=== PATIENT | female | born 1990 | race Caucasian/White ===

== ENCOUNTER → 2017-01-06 | Outpatient (CLI) | payer OTHER ==
[2017-01-06 12:25] LABS: ABSOLUTE BASOPHILS # (AUTO) 0.1 10^3/uL (0.0-0.2); ABSOLUTE EOSINOPHILS # (AUTO) 0.5 10^3/uL (0.0-0.6); ABSOLUTE LYMPHOCYTES (AUTO) 3.2 10^3/uL (0.5-4.7); ABSOLUTE MONOCYTES (AUTO) 0.6 10^3/uL (0.1-1.4); ABSOLUTE NEUT (AUTO) 5.2 10^3/uL (1.7-8.2); BASOPHILS % (AUTO) 0.7 % (0-2); EOSINOPHILS % (AUTO) 4.8 % (0-6); HEMATOCRIT 39.8 % (36.0-47.0); HEMOGLOBIN 13.2 g/dL (12.0-15.5); HGB HCT DIFFERENCE -0.2; MEAN CORPUSCULAR HEMOGLOBIN 29.6 pg (27.0-33.4); MEAN CORPUSCULAR HGB CONC 33.3 g/dL (32.0-36.0); MEAN CORPUSCULAR VOLUME 89 fl (80-97); MONOCYTES % (AUTO) 6.1 % (3-13); RED BLOOD COUNT 4.48 10^6/uL (3.72-5.28); RED CELL DISTRIBUTION WIDTH 14.4 % (11.5-14.0); SEGMENTED NEUTROPHILS % (AUTO) 54.4 % (42-78); WHITE BLOOD COUNT 9.5 10^3/uL (4.0-10.5)
[2017-01-06 12:51] LABS: ALANINE AMINOTRANSFERASE 51 U/L (9-52); ALBUMIN 4.1 g/dL (3.5-5.0); ALKALINE PHOSPHATASE 102 U/L (38-126); ANION GAP 12 (5-19); ASPARTATE AMINO TRANSFERASE 66 U/L (14-36); BILIRUBIN,DIRECT 0.5 mg/dL (0.0-0.4); BILIRUBIN,TOTAL 0.6 mg/dL (0.2-1.3); BLOOD UREA NITROGEN 10 mg/dL (7-20); CALCIUM 9.6 mg/dL (8.4-10.2); CARBON DIOXIDE 23 mmol/L (22-30); CHLORIDE 105 mmol/L (98-107); CREATININE RESULT 0.72 mg/dL (0.52-1.25); GLUCOSE 160 mg/dL (75-110); SODIUM 139.8 mmol/L (137-145); TOTAL PROTEIN 7.7 g/dL (6.3-8.2)
[2017-01-06 12:52] LABS: POTASSIUM 4.2 mmol/L (3.6-5.0)
== END ==
LOC: OD 11:29
PROVIDERS: ATTEND Internal Medicine
DX: I10 Essential (primary) hypertension (principal); R73.09 Other abnormal glucose; E66.01 Morbid (severe) obesity due to excess calories
CPT/HCPCS: 36415; 80053; 82043; 83036; 84443; 85025

== ENCOUNTER 2017-01-31 21:48 | Emergency (ER) | payer OTHER | END 2017-01-31 23:38 | disposition left against medical advice (07) | LOC: ER 21:48 | DX: Z53.21 Procedure and treatment not carried out due to patient leaving prior to being seen by health care provider (principal) ==

== ENCOUNTER 2017-05-21 19:44 | Emergency (ER) | payer BC, OTHER ==
[2017-05-21] MEDS ORDERED: LORATADINE/PSEUDOEPHEDRINE SUL 10-240 MG TAB.SR.24H PO ONE (21:39)
[2017-05-21] MEDS ORDERED: IPRATROPIUM/ALBUTEROL 0.5-2.5 MG/3 ML AMPUL NEB ONE (21:39)
--- NOTE | 2017-05-21 22:09 | ER Document Report ---
ED General - General Chief Complaint: Cold Symptoms Stated Complaint: FLU LIKE SYMPTOMS Time Seen by Provider: 05/21/17 21:39 Notes: Patient is a 27-year-old female presents emergency department complaining of sinus congestion, runny nose, sore throat and dry cough for approximately 3 days. Patient states that she does have a history of asthma and ran out of her inhaler. Past medical history significant for diabetes, hypertension, anxiety, bipolar. Patient is a current smoker Past surgical history significant for tonsils and adenoids, cholecystectomy TRAVEL OUTSIDE OF THE [place] IN LAST 30 DAYS: No - Related Data Allergies/Adverse Reactions: No Known Allergies Allergy (Verified 05/21/17 19:47) Past Medical History - Social History Smoking Status: Unknown if Ever Smoked Chew tobacco use (# tins/day): No Frequency of alcohol use: None Drug Abuse: None Family History: Reviewed & Not Pertinent Patient has suicidal ideation: No Patient has homicidal ideation: No - Past Medical History Cardiac Medical History: Reports: Hx Hypertension Endocrine Medical History: Reports: Hx Diabetes Mellitus Type 2 Renal/ Medical History: Denies: Hx Peritoneal Dialysis Past Surgical History: Reports: Hx Cholecystectomy - Immunizations Hx Diphtheria, Pertussis, Tetanus Vaccination: No Review of Systems - Review of Systems Constitutional: No symptoms reported EENT: See HPI Cardiovascular: No symptoms reported Respiratory: See HPI Gastrointestinal: No symptoms reported -: Yes All other systems reviewed and negative Physical Exam - Vital signs Vitals: Temp Pulse Resp BP Pulse Ox 99.5 F 113 H 18 142/99 H 94 05/21/17 19:47 05/21/17 19:47 05/21/17 19:47 05/21/17 19:47 05/21/17 19:47 - Notes Notes: PHYSICAL EXAM GENERAL: Alert, interacts well. HEAD: Normocephalic, atraumatic. EYES: Pupils equal, round, and reactive to light. Extraocular movements intact. ENT: Oral mucosa moist, tongue midline. Uvula midline. Airway patent. No evidence of tonsillar enlargement, peritonsillar abscess, retropharyngeal abscess. NECK: Full range of motion. Supple. Trachea midline. LUNGS: Clear to auscultation bilaterally, no wheezes, rales, or rhonchi. No respiratory distress. HEART: Regular rate and rhythm. No murmurs, gallops, or rubs. NEUROLOGICAL: Alert and oriented x4. Normal speech. PSYCH: Normal affect, normal mood. SKIN: Warm, dry, normal turgor. No rashes or lesions noted. Course - Re-evaluation Re-evalutation: 05/21/17 22:43 Patient is a 27-year-old female is hemodynamically stable, no acute distress afebrile. Nebulizer treatment. No respiratory distress noted. Discussed with patient [id number] management of hayfever and will discharge home on steroids for asthma exacerbation. Patient agrees with plan. Discussed signs and symptoms aware of indicating return to the emergency department. She agrees with plan patient feels improved after - Vital Signs Vital signs: Temp Pulse Resp BP Pulse Ox 99.5 F 113 H 18 142/99 H 94 05/21/17 19:47 05/21/17 19:47 05/21/17 19:47 05/21/17 19:47 05/21/17 19:47 Discharge - Discharge Clinical Impression: Asthma exacerbation Condition: Good Disposition: HOME, SELF-CARE Additional Instructions: Please purchase an [id number] allergy medication with decongestant such as Larissa-D or Claritin D ASTHMA: You have been diagnosed as having asthma. This is a condition where there is episodic tightness in the bronchial tubes. Allergies, infections, and polluted or cold air may be contributing factors. Emergency treatment of a severe asthma attack may include adrenaline shots , or bronchodilator aerosol. You may feel lightheaded, have a decreased exercise tolerance and a rapid pulse for an hour or two. Rest and get plenty of fluids. Home treatment of asthma requires bronchodilator drugs. These can be administered by injection, inhalation, or by mouth. Antibiotics and corticosteroids may be required for some patients. You should avoid chemical fumes, dusts, pollens, and exercising in very cold or dry air. If you smoke, stop!! If you develop a fever, increased wheezing, chest pain, or severe shortness of breath, you should contact the doctor immediately. STEROID MEDICATION: You have been given an injection of or oral medicine of the cortisone/ steroid class. This medication is used to control inflammation or allergy. Ap t is usually only given for a short period of time, until the acute process subsides. There are usually no side effects from short-term use of cortisone-like medications. Some persons feel an increased sense of well-being and are not sleepy at bedtime. Long-term use of cortisone medications is best avoided, unless required for a severe condition. If your condition does not remit, or relapses after the course of corticosteroid medication, you should consult your physician. INHALED BRONCHODILATORS: You have received treatment(s) of and/or prescription for an inhaled bronchodilator -- a medication which stimulates the airways in the lung to dilate. This improves the flow of air in asthma, bronchitis, and emphysema. These medicines have some similarity to adrenaline, and can cause similar side effects: shakiness, racing heart, and a sense of nervousness. These side effects decrease with time. Contact your doctor if these side effects are severe. Do not over-use the medicine. Too-frequent use of the inhaler may make it ineffective. Call your doctor if the inhaler is not controlling your symptoms at the prescribed doses. SMOKING: If you smoke, you should stop smoking. The tar and chemicals in cigarette smoke are harmful. Smoking has been shown to cause: emphysema chronic bronchitis lung cancer mouth and throat cancer stomach and pancreas cancer premature aging defects In addition, smoking increases ear and lung infections in children of smokers. USE OF ACETAMINOPHEN: Acetaminophen may be taken for pain relief or fever control. It's much safer than aspirin, offering a wider range of "safe" dosages. It is safe during . Some brand names are Tylenol, Panadol, Datril, Anacin 3, Tempra, and Liquiprin. Acetaminophen can be repeated every four hours. The following are maximum recommended dosages: USE OF ACETAMINOPHEN (Tylenol): Acetaminophen may be taken for pain relief or fever control. It's much safer than aspirin, offering a wider range of "safe" dosages. It is safe during . Some brand names are Tylenol, Panadol, Datril, Anacin 3, Tempra, and Liquiprin. Acetaminophen can be repeated every four hours. The following are maximum recommended dosages: WEIGHT Dose Drops Elixir Chewable( 80mg) (LBS.) drprs=droppers tsp=teaspoon 6 40 mg 0.4 ml (1/2) 6-11 80 mg 0.8 ml (full) tsp 1 tab 12-16 120 mg 1 1/2 drprs 3/4 tsp 1 1/2 tabs 17-23 160 mg 2 drprs 1 tsp 2 tabs 24-30 240 mg 3 drprs 1 1/2 tsp 3 tabs 30-35 320 mg 2 tsp 4 tabs 36-41 360 mg 2 1/4 tsp 4 1/2 tabs 42-47 400 mg 2 1/2 tsp 5 tabs 48-53 480 mg 3 tsp 6 tabs 54-59 520 mg 3 1/4 tsp 6 1/2 tabs 60-64 560 mg 3 1/2 tsp 7 tabs 65-70 600 mg 3 3/4 tsp 7 1/2 tabs 71-76 640 mg 4 tsp 8 tabs 77-82 720 mg 4 1/2 tsp 9 tabs 83-88 800 mg 5 tsp 10 tabs >89 pounds or adults 650 mg to 900 mg Acetaminophen can be repeated every four hours. Maximum dose not to exceed 4000 mg a day. These maximum recommended dosages are slightly higher than the dosages written on the product container, but these dosages are very safe and below the toxic dosage for acetaminophen. FOLLOW-UP CARE: If you have been referred to a physician for follow-up care, call the physician s office for an appointment as you were instructed or within the next two days. If you experience worsening or a significant change in your symptoms, notify the physician immediately or return to the Emergency Department at any time for re-evaluation. Prescriptions: Methylprednisolone [Medrol Dosepack (4 mg/Tab) 21 Tab/Dosepak] 4 mg PO ASDIR PRN #21 tab.ds.pk PRN Reason: Forms: Smoking Cessation Education, Return to Work
[2017-05-21] MEDS ORDERED: ALBUTEROL SULFATE HFA (90 MCG/PUFF) 8 GM MDI (1 MDI/ER DISP) IH PRN (22:26)
[2017-05-21 22:49] VITALS: BP 147/81
== END 2017-05-21 22:54 | disposition home or self-care (01) ==
LOC: ER 19:44
DX: J45.901 Unspecified asthma with (acute) exacerbation (principal); R09.81 Nasal congestion; J02.9 Acute pharyngitis, unspecified; R09.89 Other specified symptoms and signs involving the circulatory and respiratory systems; R05 Cough; E11.9 Type 2 diabetes mellitus without complications; I10 Essential (primary) hypertension; F17.200 Nicotine dependence, unspecified, uncomplicated
CPT/HCPCS: 94640; 99283; J3490 ×2; J7620

== ENCOUNTER 2017-06-06 10:59 | Emergency (ER) | payer OTHER ==
[2017-06-06] MEDS ORDERED: NORMAL SALINE 1000 ML 1,000 ML IV ONE ×2 (11:11→12:43)
--- NOTE | 2017-06-06 11:14 | ER Document Report ---
ED Medical Screen (RME) - General Chief Complaint: Nausea/Vomiting/Diarrhea Stated Complaint: VOMITING, DIARRHEA Time Seen by Provider: 06/06/17 11:11 Mode of Arrival: Ambulatory Information source: Patient Notes: 27 yr old female presents with complaints of nausea vomiting diarrhea. I have greeted and performed a rapid initial assessment of this patient. A comprehensive ED assessment and evaluation of the patient, analysis of test results and completion of the medical decision making process will be conducted by additional ED providers. PHYSICAL EXAMINATION: GENERAL: Well-appearing, well-nourished and in no acute distress. HEAD: Atraumatic, normocephalic. EYES: Pupils equal round extraocular movements intact, conjunctiva are normal. ENT: Nares patent NECK: Normal range of motion LUNGS: No respiratory distress Musculoskeletal: Normal range of motion NEUROLOGICAL: Normal speech, normal gait. PSYCH: Normal mood, normal affect. SKIN: Warm, Dry, normal turgor, no rashes or lesions noted. TRAVEL OUTSIDE OF THE [place] IN LAST 30 DAYS: No - Related Data Allergies/Adverse Reactions: No Known Allergies Allergy (Verified 06/06/17 11:03) Past Medical History - Past Medical History Cardiac Medical History: Reports: Hx Hypertension Endocrine Medical History: Reports: Hx Diabetes Mellitus Type 2 Renal/ Medical History: Denies: Hx Peritoneal Dialysis Past Surgical History: Reports: Hx Cholecystectomy - Immunizations Hx Diphtheria, Pertussis, Tetanus Vaccination: No Physical Exam - Vital signs Vitals: Temp Pulse Resp BP Pulse Ox 98.0 F 117 H 24 H 144/83 H 97 06/06/17 11:04 06/06/17 11:04 06/06/17 11:04 06/06/17 11:04 06/06/17 11:04 Course - Vital Signs Vital signs: Temp Pulse Resp BP Pulse Ox 98.0 F 117 H 24 H 144/83 H 97 06/06/17 11:04 06/06/17 11:04 06/06/17 11:04 06/06/17 11:04 06/06/17 11:04
--- NOTE | 2017-06-06 11:42 | ER Document Report ---
ED General - General Chief Complaint: Nausea/Vomiting/Diarrhea Stated Complaint: VOMITING, DIARRHEA Time Seen by Provider: 06/06/17 11:11 Mode of Arrival: Ambulatory Notes: 27-year-old female patient presents emergency department with 1 day history of nausea, vomiting, diarrhea and generally not feeling well. States that she cannot keep anything down. Some crampy abdominal discomfort. Patient states that she has type 2 diabetes, hypertension is a smoker with asthma. Everybody in the house is sick as well. No blood in her diarrhea. No blood in the vomit. No recent surgeries. No other issues at this time. Denies any fevers. TRAVEL OUTSIDE OF THE [place] IN LAST 30 DAYS: No - Related Data Allergies/Adverse Reactions: No Known Allergies Allergy (Verified 06/06/17 11:03) Past Medical History - General Information source: Patient - Social History Smoking Status: Current Every Day Smoker Chew tobacco use (# tins/day): No Frequency of alcohol use: None Drug Abuse: None Family History: Reviewed & Not Pertinent - Past Medical History Cardiac Medical History: Reports: Hx Hypertension Endocrine Medical History: Reports: Hx Diabetes Mellitus Type 2 Renal/ Medical History: Denies: Hx Peritoneal Dialysis Past Surgical History: Reports: Hx Cholecystectomy - Immunizations Hx Diphtheria, Pertussis, Tetanus Vaccination: No Review of Systems - Review of Systems Constitutional: No symptoms reported EENT: No symptoms reported Cardiovascular: No symptoms reported, Heart racing Respiratory: No symptoms reported Gastrointestinal: No symptoms reported, Abdominal pain, Diarrhea, Nausea, Vomiting Genitourinary: No symptoms reported Female Genitourinary: No symptoms reported Musculoskeletal: No symptoms reported Skin: No symptoms reported Hematologic/Lymphatic: No symptoms reported Neurological/Psychological: No symptoms reported Physical Exam - Vital signs Vitals: Temp Pulse Resp BP Pulse Ox 98.0 F 117 H 24 H 144/83 H 97 06/06/17 11:04 06/06/17 11:04 06/06/17 11:04 06/06/17 11:04 06/06/17 11:04 Interpretation: Normal, Tachypneic - General General appearance: Appears well, Alert In distress: None - HEENT Head: Normocephalic, Atraumatic Eyes: Normal Pupils: PERRL Mucous membranes: Dry - Respiratory Respiratory status: No respiratory distress Chest status: Nontender Breath sounds: Normal Chest palpation: Normal - Cardiovascular Rhythm: Regular, Tachycardia Heart sounds: Normal auscultation Murmur: No - Abdominal Inspection: Normal Distension: No distension Bowel sounds: Hyperactive Tenderness: Nontender Organomegaly: No organomegaly - Back Back: Normal, Nontender - Extremities General upper extremity: Normal inspection, Nontender, Normal color, Normal ROM , Normal temperature General lower extremity: Normal inspection, Nontender, Normal color, Normal ROM , Normal temperature, Normal weight bearing. No: Allan's sign - Neurological Neuro grossly intact: Yes Cognition: Normal Orientation: AAOx4 [place] Coma Scale Eye Opening: Spontaneous Nils Coma Scale Verbal: Oriented Nils Coma Scale Motor: Obeys Commands Nils Coma Scale Total: 15 Speech: Normal Motor strength normal: LUE, RUE, LLE, RLE Sensory: Normal - Psychological Associated symptoms: Normal affect, Normal mood - Skin Skin Temperature: Warm Skin Moisture: Dry Skin Color: Normal Course - Re-evaluation Re-evalutation: 06/06/17 11:52 This is a well-appearing female in no acute distress at this time. IV has been established. IV fluids will be given. Zofran. H2 IV for easing of the stomach. Likely check some basic labs and anticipate treatment and DC. 06/06/17 13:51 Patient feeling much better at this time. Tolerating p.o. Slight elevation in her AST and ALT. Added a acute hepatitis panel as well as lipase. Instructed patient that she will need close follow-up regarding her elevated liver function studies as this may indicate a retained stone if her bilirubin levels begin to elevate. Patient verbalized understanding these instructions. Will discharge shortly. - Vital Signs Vital signs: Temp Pulse Resp BP Pulse Ox 98.0 F 117 H 24 H 144/83 H 97 06/06/17 11:04 06/06/17 11:04 06/06/17 11:04 06/06/17 11:04 06/06/17 11:04 - Laboratory Result Diagrams: 06/06/17 11:34 06/06/17 11:34 Laboratory results interpreted by me: 06/06/17 06/06/17 06/06/17 11:12 11:34 11:34 RDW 14.6 H VBG pH Carbon Dioxide 21 L Glucose 143 H POC Glucose 150 H AST 200 H ALT 88 H Urine Protein Urine Blood Urine Urobilinogen 10/07/17 10/07/17 11:34 12:40 RDW VBG pH 7.43 H Carbon Dioxide Glucose POC Glucose AST ALT Urine Protein 30 H Urine Blood LARGE H Urine Urobilinogen 4.0 H Discharge - Discharge Clinical Impression: Gastroenteritis Condition: Good Disposition: HOME, SELF-CARE Instructions: Antinausea Medication ([facility]), Gastroenteritis (adult) ([facility]) Prescriptions: Ondansetron [Zofran Odt 4 mg Tablet] 1 - 2 tab PO Q4H PRN #15 tab.rapdis PRN Reason: For Nausea/Vomiting Ranitidine HCl [Zantac 150 mg Tablet] 150 mg PO BID #60 tablet Forms: Return to Work
[2017-06-06 11:46] LABS: ABSOLUTE BASOPHILS # (AUTO) 0.1 10^3/uL (0.0-0.2); ABSOLUTE EOSINOPHILS # (AUTO) 0.3 10^3/uL (0.0-0.6); ABSOLUTE LYMPHOCYTES (AUTO) 1.5 10^3/uL (0.5-4.7); ABSOLUTE MONOCYTES (AUTO) 0.4 10^3/uL (0.1-1.4); ABSOLUTE NEUT (AUTO) 6.3 10^3/uL (1.7-8.2); BASOPHILS % (AUTO) 0.6 % (0-2); EOSINOPHILS % (AUTO) 3.2 % (0-6); HEMATOCRIT 38.4 % (36.0-47.0); HGB HCT DIFFERENCE 0.6; LYMPHOCYTES % (AUTO) 17.4 % (13-45); MEAN CORPUSCULAR HEMOGLOBIN 29.8 pg (27.0-33.4); MEAN CORPUSCULAR HGB CONC 33.9 g/dL (32.0-36.0); MEAN CORPUSCULAR VOLUME 88 fl (80-97); MONOCYTES % (AUTO) 4.3 % (3-13); RED BLOOD COUNT 4.36 10^6/uL (3.72-5.28); RED CELL DISTRIBUTION WIDTH 14.6 % (11.5-14.0); SEGMENTED NEUTROPHILS % (AUTO) 74.5 % (42-78); WHITE BLOOD COUNT 8.5 10^3/uL (4.0-10.5)
[2017-06-06 11:47] LABS: VENOUS BLOOD BASE EXCESS -0.3 mmol/L; VENOUS BLOOD HCO3 23.7 mmol/L (20-32); VENOUS BLOOD PCO2 36.9 mmHg (35-63); VENOUS BLOOD PH 7.43 (7.30-7.42)
[2017-06-06] MEDS ORDERED: FAMOTIDINE INJ/PF 20 MG/2 ML SDV IV ONE (11:53)
[2017-06-06] MEDS ORDERED: ONDANSETRON HCL INJ/PF 4 MG/2 ML SDV IV ONE (11:53)
[2017-06-06 12:06] LABS: ALANINE AMINOTRANSFERASE 88 U/L (9-52); ALKALINE PHOSPHATASE 87 U/L (38-126); ANION GAP 16 (5-19); ASPARTATE AMINO TRANSFERASE 200 U/L (14-36); BILIRUBIN,DIRECT 0.4 mg/dL (0.0-0.4); BILIRUBIN,TOTAL 0.6 mg/dL (0.2-1.3); BLOOD UREA NITROGEN 10 mg/dL (7-20); CALCIUM 8.9 mg/dL (8.4-10.2); CARBON DIOXIDE 21 mmol/L (22-30); CHLORIDE 103 mmol/L (98-107); CREATININE RESULT 0.65 mg/dL (0.52-1.25); GLUCOSE 143 mg/dL (75-110); POTASSIUM 4.1 mmol/L (3.6-5.0); SODIUM 139.5 mmol/L (137-145); TOTAL PROTEIN 7.1 g/dL (6.3-8.2)
[2017-06-06 13:22] LABS: APPEARANCE,URINE SLIGHTLY-CLOUDY; BILIRUBIN,URINE NEGATIVE (NEGATIVE); GLUCOSE, URINE NEGATIVE (NEGATIVE); KETONES,URINE NEGATIVE (NEGATIVE); LEUKOCYTE ESTERASE,URINE NEGATIVE (NEGATIVE); NITRITE,URINE NEGATIVE (NEGATIVE); PROTEIN,URINE 30 mg/dL (NEGATIVE); URINE SPECIFIC GRAVITY 1.028
[2017-06-06 14:58] VITALS: BP 124/72
== END 2017-06-06 14:55 | disposition home or self-care (01) ==
LOC: ER 10:59
DX: K52.9 Noninfective gastroenteritis and colitis, unspecified (principal); E11.9 Type 2 diabetes mellitus without complications; I10 Essential (primary) hypertension; F17.200 Nicotine dependence, unspecified, uncomplicated; J45.909 Unspecified asthma, uncomplicated; R00.0 Tachycardia, unspecified
CPT/HCPCS: 99284; 96361; 96374; 96375; 36415; 82962; 83690; 85025; 81025; 80053; 81001; 82803; 80074; J2405; J7030; S0028

== ENCOUNTER 2017-07-23 17:24 | Emergency (ER) | payer OTHER ==
[2017-07-23] MEDS ORDERED: LIDOCAINE 1% INJ-PF (10 MG/ML) 30 ML SDV INJ ONE (17:32)
[2017-07-23] MEDS ORDERED: ACETAMINOPHEN 325 MG TABLET PO ONE (17:32)
--- NOTE | 2017-07-23 17:32 | ER Document Report ---
HPI - HPI Patient complains to provider of: Laceration Pain Level: 4 Context: Patient is a 27-year-old female presents emergency department complaining of a laceration to the volar surface of the left middle finger along the radial aspect in the proximal phalanx joint. Patient states that she was cutting of high holding it with her left hand and the knife went through cutting her finger. States her tetanus is not up-to-date. Able to move her finger without any difficulty sensation intact. Past medical history of asthma. - REPRODUCTIVE Reproductive: DENIES: : Past Medical History - Social History Smoking Status: Never Smoker Family History: Reviewed & Not Pertinent - Past Medical History Cardiac Medical History: Reports: Hx Hypertension Endocrine Medical History: Reports: Hx Diabetes Mellitus Type 2 Renal/ Medical History: Denies: Hx Peritoneal Dialysis Past Surgical History: Reports: Hx Cholecystectomy - Immunizations Hx Diphtheria, Pertussis, Tetanus Vaccination: No Vertical Provider Document - CONSTITUTIONAL Notes: PHYSICAL EXAM GENERAL: Alert, interacts well. EXTREMITIES: Left hand with evidence of laceration on the radial volar surface of the left middle finger without tendon injury. [employer] strength equal bilaterally in resistance on active range of motion is equal in all digits. Sensation intact distal injury with capillary refill less than 2 seconds in all upper extremity digits NEUROLOGICAL: Alert and oriented x4. Normal speech. PSYCH: Normal affect, normal mood. SKIN: Warm, dry, normal turgor. A 2 cm horizontal laceration on the middle finger without active bleeding. - INFECTION CONTROL TRAVEL OUTSIDE OF THE [place] IN LAST 30 DAYS: No - RESPIRATORY O2 Sat by Pulse Oximetry: 97 Course - Re-evaluation Re-evalutation: 07/23/17 18:36 Patient is a 27-year-old female who presents with a laceration to her left middle finger. This was irrigated with Betadine and saline and closed primarily at the bedside. Patient tolerated the procedure well. Digit is neurovascularly intact without any concerning injury range of motion and strength intact. Patient placed in a splint and to follow-up with primary care for suture removal. Patient given strict return precautions and stable for discharge. - Vital Signs Vital signs: Temp Pulse Resp BP Pulse Ox 99.2 F 98 20 142/84 H 97 07/23/17 17:27 07/23/17 17:27 07/23/17 17:27 07/23/17 17:27 07/23/17 17:27 Procedures - Laceration/Wound Repair Left Lateral 3rd digit Wound length (cm): 2 Wound's Depth, Shape: Linear, Other - no tendon involvement Laceration pre-procedure: Sterile PPE donned, Betadine prep applied, Sterile drapes applied Anesthetic type: 1% Lidocaine Volume Anesthetic (mLs): 2 Wound explored: Clean, No foreign body removed Irrigated w/ Saline (mLs): 250 Wound Repaired With: Sutures Suture Size/Type: 6:0, Nylon Number of Sutures: 3 Layer Closure?: No Post-procedure wound care: Sterile dressing applied, Splint applied Post-procedure NV exam normal: Yes Complications: No Discharge - Discharge Clinical Impression: Finger laceration Qualifiers: Encounter type: initial encounter Finger: middle finger Damage to nail status: without damage Foreign body presence: without foreign body Laterality: left Qualified Code(s): S61.213A - Laceration without foreign body of left middle finger without damage to nail, initial encounter Condition: Good Disposition: HOME, SELF-CARE Instructions: Acetaminophen Additional Instructions: LACERATION CARE: Your laceration has been sutured to keep the skin edges aligned during healing. The time of suture removal depends on the nature and location of your cut. Please follow the care instructions the doctor has outlined for you and return for further care, according to the schedule you've been given. Keep the wound and dressing clean. Unless you were told otherwise, you may shower daily, blotting the wound dry with a clean, unused towel. At other times, If the dressing gets wet or blood soaked, remove it and blot the wound dry, then reapply a new dressing. Unless you were instructed otherwise, dressings should be changed at least daily. If any signs of infection occur (swelling, redness, drainage, increasing tenderness, red streaks, tender lumps in the armpit or groin above the laceration, or fever), see the doctor immediately. SOAP CLEANSING: Gently wash the wound daily using a mild soap (like Ivory, Phisoderm, Neutrogena). Use warm water, rubbing gently until all debris, ooze, and crusting have been washed from the wound. Allow to dry briefly (about 10 minutes) after cleaning. Repeat this cleansing at least three times a day for the first two days and then once or twice a day. ANTIBIOTIC OINTMENT PROTECTION: Your wounds are such that dressing them is not practical or optional. After cleansing, you should apply a thin coating of antibiotic ointment ( Bacitracin, not Neosporin) to the wounds at least three times daily. This lessens infection risk, and may decrease the amount of scarring. Use a q-tip or dull butter knife, not your finger, to apply this ointment. Any debris or ooze which builds up in the ointment should be gently rubbed off with a sterile gauze pad. Harder crusting may need to be gently scrubbed off with a clean wash cloth with soap and warm water, perhaps applying a warm, wet wash cloth to the wound for ten minutes first. Development of redness, severe itching, or blistering may mean allergy to the ointment. See the doctor. TETANUS IMMUNIZATION GIVEN: You have been given an immunization against tetanus. Please record this in your records. In general, a booster is needed only once every 10 years. The tetanus shot protects against tetanus or "lockjaw," which is a complication of certain wound infections (the tetanus shot cannot protect against the actual infection). The immunization site may become warm and red due to local reaction. If this occurs, apply warm compresses and take aspirin or ibuprofen to reduce inflammation and discomfort. Return for evaluation if the reaction becomes severe. FOLLOW-UP CARE: Your sutures should be removed in 8-10 days. To facilitate a timely removal of your sutures, you may return to the [facility] at [facility]. You do not need to call for an appointment, but the best time to come in for suture removal is early in the morning. If you have been referred to another physician for follow-up care, call that physicians office for an appointment as you were instructed. If you experience a significant change in your laceration, or if you are concerned there may be an infection (swelling, redness, drainage, increasing tenderness, red streaks, tender lumps in the armpit or groin above the laceration, or fever) , return to the Emergency Department immediately re-evaluation.
[2017-07-23] MEDS ORDERED: DIPH/PERTUSS(ACELL)/TETANUS VAC/PF 0.5 ML SYR (>=10YO) IM ONE (18:33)
[2017-07-23 18:59] VITALS: BP 129/84
== END 2017-07-23 19:00 | disposition home or self-care (01) ==
LOC: ER 17:24
PROC: 0HQGXZZ Repair Left Hand Skin, External Approach (ICD-10-PCS; principal; 2017-07-23)
DX: S61.213A Laceration without foreign body of left middle finger without damage to nail, initial encounter (principal); W26.0XXA Contact with knife, initial encounter
CPT/HCPCS: 99282; 90471; 90715; 12001; J3490

== ENCOUNTER 2017-07-30 22:44 | Emergency (ER) | payer OTHER ==
--- NOTE | 2017-07-30 23:17 | ER Document Report ---
HPI - HPI Patient complains to provider of: laceration Pain Level: 1 Context: Patient was seen here on 07/23 for laceration. patient removed her sutures yesterday on her own, returns to ED b/c the wound is dehisced. no evidence of purulent drainage, erythema, tenderness - REPRODUCTIVE LMP: 07/30/2017 Reproductive: DENIES: : Past Medical History - Social History Smoking Status: Smoker,Current Status Unk Family History: Reviewed & Not Pertinent - Past Medical History Cardiac Medical History: Reports: Hx Hypertension Endocrine Medical History: Reports: Hx Diabetes Mellitus Type 2 Renal/ Medical History: Denies: Hx Peritoneal Dialysis Past Surgical History: Reports: Hx Cholecystectomy - Immunizations Hx Diphtheria, Pertussis, Tetanus Vaccination: No Vertical Provider Document - CONSTITUTIONAL Agree With Documented VS: Yes Notes: PHYSICAL EXAM GENERAL: Alert, interacts well. EXTREMITIES: Moves all 4 extremities spontaneously. No edema, radial and dorsalis pedis pulses 2/4 bilaterally. No cyanosis. NEUROLOGICAL: Alert and oriented x4. Normal speech. PSYCH: Normal affect, normal mood. SKIN: Warm, dry, normal turgor. laceration on the volar surface of the left index finger with dehiscence without cellulitis - INFECTION CONTROL TRAVEL OUTSIDE OF THE [place] IN LAST 30 DAYS: No - RESPIRATORY O2 Sat by Pulse Oximetry: 95 Course - Re-evaluation Re-evalutation: 07/30/17 23:48 Patient is a 27-year-old female is hemodynamic stable, no acute distress afebrile. Superficial wound dehiscence due to premature suture removal. Patient educated on wound care, given strict return precautions indicating concern for infection. Patient agrees with plan and is stable for discharge - Vital Signs Vital signs: Temp Pulse Resp BP Pulse Ox 98.5 F 93 20 140/69 H 95 07/30/17 23:08 07/30/17 23:08 07/30/17 23:08 07/30/17 23:08 07/30/17 23:08 Discharge - Discharge Clinical Impression: Wound dehiscence Condition: Good Disposition: HOME, SELF-CARE Additional Instructions: NON-SUTURED LACERATION: Your laceration did not require suturing. Some lacerations cannot be sutured because of increased infection risk, while others simply don't need stitches because they are shallow or very short. Your injury should be protected while it heals. Usually complete healing takes 10 to 14 days. Keep the dressing clean and dry, and change it every day. If you notice increasing pain, redness, swelling, drainage, or tender lumps in the armpit or groin above the injury, infection may be present. You should call the doctor at once. SOAP CLEANSING: Gently wash the wound daily using a mild soap (like Ivory, Phisoderm, Neutrogena). Use warm water, rubbing gently until all debris, ooze, and crusting have been washed from the wound. Allow to dry briefly (about 10 minutes) after cleaning. Repeat this cleansing at least three times a day for the first two days and then once or twice a day. ANTIBIOTIC OINTMENT PROTECTION: Your wounds are such that dressing them is not practical or optional. After cleansing, you should apply a thin coating of antibiotic ointment ( Bacitracin, not Neosporin) to the wounds at least three times daily. This lessens infection risk, and may decrease the amount of scarring. Use a q-tip or dull butter knife, not your finger, to apply this ointment. Any debris or ooze which builds up in the ointment should be gently rubbed off with a sterile gauze pad. Harder crusting may need to be gently scrubbed off with a clean wash cloth with soap and warm water, perhaps applying a warm, wet wash cloth to the wound for ten minutes first. Development of redness, severe itching, or blistering may mean allergy to the ointment. See the doctor. Referrals: EMA RIZVI MD [Primary Care Provider] - Follow up as needed
[2017-07-30 23:32] VITALS: BP 142/96
== END 2017-07-30 23:34 | disposition home or self-care (01) ==
LOC: ER 22:44
DX: T81.30XA Disruption of wound, unspecified, initial encounter (principal); S61.211D Laceration without foreign body of left index finger without damage to nail, subsequent encounter; X58.XXXD Exposure to other specified factors, subsequent encounter
CPT/HCPCS: 99282

== ENCOUNTER 2017-10-27 03:41 | Emergency (ER) | payer SELFPAY ==
--- NOTE | 2017-10-27 04:27 | ER Document Report ---
ED General - General TRAVEL OUTSIDE OF THE [place] IN LAST 30 DAYS: No <JOSEP PRESSLEY - Last Filed: 10/27/17 05:59> <EFREN CHEN - Last Filed: 10/27/17 09:46> <RUDDY JONES - Last Filed: 10/27/17 10:30> - General Chief Complaint: Suicidal Ideation Stated Complaint: PSYCH EVAL Time Seen by Provider: 10/27/17 04:12 Notes: Patient is a 27-year-old female presents with complaint of severe depression. She said some thoughts of suicide. Patient says that she has a history of bipolar disorder and had an argument with her frieda. Her said he was going to leave. She said that this made her more depressed. She does not take her medications today. She also has history of diabetes high blood pressure. She takes metformin 1000 mg twice a day for diabetes. She takes losartan 100 mg and hydrochlorothiazide 25 mg daily for blood pressure issues. She says she has had some recent changes in her psychiatric medications approximately 3 weeks ago. She is unsure if this is helped or made things worse. She has no other complaints at this time. She denies recent fevers or medical illness. (JOSEP PRESSLEY) - Related Data Allergies/Adverse Reactions: No Known Allergies Allergy (Verified 07/30/17 23:03) Past Medical History - Social History Smoking Status: Unknown if Ever Smoked Frequency of alcohol use: None Drug Abuse: None Family History: Reviewed & Not Pertinent - Past Medical History Cardiac Medical History: Reports: Hx Hypertension Endocrine Medical History: Reports: Hx Diabetes Mellitus Type 2 Renal/ Medical History: Denies: Hx Peritoneal Dialysis Past Surgical History: Reports: Hx Cholecystectomy - Immunizations Hx Diphtheria, Pertussis, Tetanus Vaccination: No <JOSEP PRESSLEY - Last Filed: 10/27/17 05:59> Review of Systems <JOSEP PRESSLEY - Last Filed: 10/27/17 05:59> <EFREN CHEN - Last Filed: 10/27/17 09:46> <RUDDY JONES - Last Filed: 10/27/17 10:30> - Review of Systems Notes: My Normal Review Basic REVIEW OF SYSTEMS: CONSTITUTIONAL : Denies fever, chills, or sweats. Denies recent illness. EENT: Denies eye, ear, throat, or mouth pain or symptoms. Denies nasal or sinus congestion. RESPIRATORY: Denies cough, cold, or chest congestion. Denies shortness of breath, difficulty breathing, or wheezing. GASTROINTESTINAL: Denies abdominal pain. Denies nausea, vomiting, or diarrhea. Denies constipation. Last BM: MUSCULOSKELETAL: Denies neck or back pain or joint pain or swelling. SKIN: Denies rash or skin lesions. NEUROLOGICAL: Denies altered mental status or loss of consciousness. Denies headache. Denies weakness or paralysis or loss of use of either side. Denies problems with gait or speech. Denies sensory or motor loss. PSYCHIATRIC: History of bipolar. Severe depression with suicidal thoughts. ALL OTHER SYSTEMS REVIEWED AND NEGATIVE. (JOSEP PRESSLEY) Physical Exam <JOSEP PRESSLEY - Last Filed: 10/27/17 05:59> <EFREN CHEN - Last Filed: 10/27/17 09:46> <RUDDY JONES - Last Filed: 10/27/17 10:30> - Vital signs Vitals: Temp Pulse Resp BP Pulse Ox 98.4 F 103 H 20 147/92 H 97 10/27/17 03:47 10/27/17 03:47 10/27/17 03:47 10/27/17 03:47 10/27/17 03:47 - Notes Notes: General Appearance: Well nourished, alert, cooperative, no acute distress, no obvious discomfort. Tearful during exam. Vitals: reviewed, See vital signs table. Head: no swelling or tenderness to the head Eyes: PERRL, EOMI, Conjuctiva clear Mouth: No decreasd moisture Lungs: No wheezing, No rales, No rhonci, No accessory muscle use, good air exchange bilaterally. Heart: Normal rate, Regular rythm, No murmur, no rub Abdomen: Normal BS, soft, No rigidity, No abdominal tenderness, No guarding, no rebound, no abdominal masses, no organomegaly Extremities: strength 5/5 in all extremities, good pulses in all extremities, no swelling or tenderness in the extremities, no edema. Skin: warm, dry, appropriate color, no rash Neuro: speech clear, oriented x 3, normal affect, responds appropriately to questions. (JOSEP PRESSLEY) Course - Laboratory Result Diagrams: 10/27/17 05:20 10/27/17 05:20 <JOSEP PRESSLEY - Last Filed: 10/27/17 05:59> - Laboratory Result Diagrams: 10/27/17 05:20 10/27/17 05:20 <EFREN CHEN - Last Filed: 10/27/17 09:46> - Laboratory Result Diagrams: 10/27/17 05:20 10/27/17 05:20 <RUDDY JONES - Last Filed: 10/27/17 10:30> - Re-evaluation Re-evalutation: 10/27/17 05:59 Patient says she is feeling improved. She says she would like to go home. She said that she feels that she will react and she feels better. She is now making better eye contact is no longer tearful. I informed her that with her history is still prefer that she speak with psychiatry first talk to them prior to leaving. She is agreeable to doing this. She says she would stay and speak with psych. Patient is medically stable for psychiatric evaluation. Dictation of this chart was performed using voice recognition software; therefore, there may be some unintended grammatical errors. 10/27/17 05:59 (JOSEP PRESSLEY) - Vital Signs Vital signs: Temp Pulse Resp BP Pulse Ox 98.4 F 103 H 20 147/92 H 97 10/27/17 03:47 10/27/17 03:47 10/27/17 03:47 10/27/17 03:47 10/27/17 03:47 - Laboratory Laboratory results interpreted by me: 10/27/17 10/27/17 05:20 05:20 WBC 11.4 H Hct 35.9 L RDW 15.0 H Carbon Dioxide 21 L Glucose 157 H AST 49 H Salicylates < 1.0 L Acetaminophen < 10 L Discharge <JOSEP PRESSLEY - Last Filed: 10/27/17 05:59> <EFREN CHEN - Last Filed: 10/27/17 09:46> <RUDDY JONES - Last Filed: 10/27/17 10:30> - Discharge Clinical Impression: Depression Qualifiers: Depression Type: unspecified Qualified Code(s): F32.9 - Major depressive disorder, single episode, unspecified Bipolar disorder Qualifiers: Active/Remission status: currently active Current bipolar episode type: depressed Condition: Good Disposition: HOME, SELF-CARE Additional Instructions: You were seen in the Emergency Department for thoughts of self-harm and suicidal ideation. You indicated your Provider is Dr. Howard with [facility] and you have the ability to schedule an appointment or walk- in to meet with her for follow up. Your original medication regiment was changed secondary to you stating your medications were not managing your bipolar symptoms. Remember, you may need to adjust your diabetes medication as a result of the medication change. Also, you requested information on therapists in the the area and were provided a resource guide with that information. Please follow through as discussed with [facility] or [facility]. New Medications as discussed: 1. Zyprexa 2.5 mg every morning (generic ok) 2. Zyprexa 5 mg every night (generic ok) 3. Prozac 20 mg every night 4. Cogentin 1 mg every night Suicidal Ideation Suicidal ideation is a common medical term for thoughts about suicide, which may be as detailed as a formulated plan, without the suicidal act itself. Although most people who undergo suicidal ideation do not commit suicide, some go on to make suicide attempts. The range of suicidal ideation varies greatly from fleeting to detailed planning, role playing, and unsuccessful attempts. Bipolar Disorder Bipolar disorder is also called manic-depressive disorder. Depression alternates with brain hyperactivity called tim. Each phase lasts from several days to a few weeks. We don't know exactly what causes bipolar disorder , but it's treatable. During the "manic phase," you may feel elated and energetic. You may have racing thoughts, rapid speech, increased activity, and grandiose ideas. During this time, you may not realize how poor your judgment is. Inappropriate spending, drug abuse, excessive alcohol use, marriage problems, and irresponsible sexual behavior are common during the manic phase. During the "depressive phase," you might feel depressed, guilty, worthless , fatigued, and unable to concentrate. You might have thoughts of suicide. Good treatments are available for bipolar disorder. [place] is a classic drug for bipolar disorder, and is still often useful. If the manic phase is very mild, an antidepressant alone can be prescribed. If the manic phase is very severe, an antipsychotic medicine (such as Zyprexa) may be needed. The treatment must be matched to your symptoms, so it's important to work closely with your psychiatric care provider. Contact your physician, the hospital emergency center, mobile crisis, or your counselor if you are losing control or having self-destructive thoughts. Prescriptions: Benztropine Mesylate 1 mg PO QHS #10 tablet Olanzapine [Zyprexa 5 mg Tablet] 5 mg PO QHS #10 tablet Fluoxetine HCl [Prozac 20 mg Capsule] 20 mg PO DAILY #10 capsule Olanzapine [Zyprexa 2.5 Mg Tablet] 2.5 mg PO QAM #10 tablet Referrals: [facility] [Provider Group] - Follow up as needed [facility] [Provider Group] - Follow up as needed [facility] [Provider Group] - Follow up as needed
[2017-10-27 05:32] LABS: ABSOLUTE EOSINOPHILS # (AUTO) 0.2 10^3/uL (0.0-0.6); ABSOLUTE LYMPHOCYTES (AUTO) 3.9 10^3/uL (0.5-4.7); ABSOLUTE MONOCYTES (AUTO) 0.6 10^3/uL (0.1-1.4); ABSOLUTE NEUT (AUTO) 6.7 10^3/uL (1.7-8.2); BASOPHILS % (AUTO) 0.3 % (0-2); EOSINOPHILS % (AUTO) 1.7 % (0-6); HEMATOCRIT 35.9 % (36.0-47.0); HEMOGLOBIN 12.1 g/dL (12.0-15.5); LYMPHOCYTES % (AUTO) 34.4 % (13-45); MEAN CORPUSCULAR HEMOGLOBIN 28.6 pg (27.0-33.4); MEAN CORPUSCULAR HGB CONC 33.7 g/dL (32.0-36.0); MEAN CORPUSCULAR VOLUME 85 fl (80-97); MONOCYTES % (AUTO) 5.2 % (3-13); PLATELET COUNT 308 10^3/uL (150-450); RED BLOOD COUNT 4.23 10^6/uL (3.72-5.28); SEGMENTED NEUTROPHILS % (AUTO) 58.4 % (42-78); TOTAL CELLS COUNTED % (AUTO) 100 %; WHITE BLOOD COUNT 11.4 10^3/uL (4.0-10.5)
[2017-10-27 05:54] LABS: ALANINE AMINOTRANSFERASE 48 U/L (9-52); ALBUMIN 4.1 g/dL (3.5-5.0); ALKALINE PHOSPHATASE 97 U/L (38-126); ANION GAP 12 (5-19); ASPARTATE AMINO TRANSFERASE 49 U/L (14-36); BILIRUBIN,DIRECT 0.4 mg/dL (0.0-0.4); BILIRUBIN,TOTAL 0.4 mg/dL (0.2-1.3); BLOOD UREA NITROGEN 14 mg/dL (7-20); CALCIUM 9.1 mg/dL (8.4-10.2); CARBON DIOXIDE 21 mmol/L (22-30); CHLORIDE 105 mmol/L (98-107); GLUCOSE 157 mg/dL (75-110); POTASSIUM 3.6 mmol/L (3.6-5.0); SODIUM 137.8 mmol/L (137-145); TOTAL PROTEIN 7.3 g/dL (6.3-8.2)
[2017-10-27 05:55] LABS: ACETAMINOPHEN < 10 ug/mL (10-30); ALCOHOL < 10 mg/dL (NONE DETECTED); SALICYLATE < 1.0 mg/dL (2.0-20.0)
--- NOTE | 2017-10-27 08:00 | EKG REPORT ---
SEVERITY:- NORMAL ECG - SINUS RHYTHM : Confirmed by: Ignacio Trotter MD 27-Oct-2017 07:59:02
[2017-10-27] MEDS ORDERED: LOSARTAN POTASSIUM 50 MG TABLET PO SCH (10:00)
[2017-10-27] MEDS ORDERED: METFORMIN HCL 500 MG TABLET PO SCH (10:00)
[2017-10-27] MEDS ORDERED: HYDROCHLOROTHIAZIDE 25 MG TABLET PO SCH (10:00)
--- NOTE | 2017-10-27 10:00 | ER Document Report ---
Doctor's Note Notes: 10/27/17 09:59 Rounds: Chart reviewed and patient interviewed. Patient is being evaluated for bipolar disorder, depression, and suicidal ideation. She has had some recent changes in her medications which is thought to be some of the problem. Vital signs are all essentially normal. Initial labs were also unremarkable. Patient appears to be medically stable for transfer or discharge. Anna Burk MD
[2017-10-27 10:41] VITALS: BP 137/83
== END 2017-10-27 10:40 | disposition home or self-care (01) ==
LOC: ER 03:41
DX: F31.9 Bipolar disorder, unspecified (principal); R45.851 Suicidal ideations; E11.9 Type 2 diabetes mellitus without complications; Z79.84 Long term (current) use of oral hypoglycemic drugs; I10 Essential (primary) hypertension; Z79.899 Other long term (current) drug therapy
CPT/HCPCS: 36415; 80053; 80307; 84703; 85025; 93005; 93010; 99285

== ENCOUNTER 2017-12-16 12:04 | Emergency (ER) | payer OTHER ==
--- NOTE | 2017-12-16 13:02 | ER Document Report ---
ED Medical Screen (RME) - General Chief Complaint: Vaginal Bleeding Stated Complaint: VAGINAL BLEEDING Time Seen by Provider: 12/16/17 12:59 Notes: Patient states that she has had 2 days of lower abdominal cramping with bleeding and clots. She states she had a normal period at the beginning of the month and feels that she may be . Patient states that she was told by her primary physician to come to the emergency department. Patient states she wants a serum test and not a urine test. TRAVEL OUTSIDE OF THE [place] IN LAST 30 DAYS: No - Related Data Allergies/Adverse Reactions: No Known Allergies Allergy (Verified 12/16/17 12:04) Past Medical History - General Last Menstrual Period: 11/29-12/04 - Social History Chew tobacco use (# tins/day): No Frequency of alcohol use: Occasional Drug Abuse: None - Past Medical History Cardiac Medical History: Reports: Hx Hypertension Endocrine Medical History: Reports: Hx Diabetes Mellitus Type 2 Renal/ Medical History: Denies: Hx Peritoneal Dialysis Psychiatric Medical History: Reports: Hx Bipolar Disorder, Hx Depression Past Surgical History: Reports: Hx Cholecystectomy, Hx Tonsillectomy - Immunizations Hx Diphtheria, Pertussis, Tetanus Vaccination: No Physical Exam - Vital signs Vitals: Temp Pulse Resp BP Pulse Ox 97.9 F 108 H 14 153/93 H 98 12/16/17 12:07 12/16/17 12:07 12/16/17 12:07 12/16/17 12:07 12/16/17 12:07 Course - Vital Signs Vital signs: Temp Pulse Resp BP Pulse Ox 97.9 F 108 H 14 153/93 H 98 12/16/17 12:07 12/16/17 12:07 12/16/17 12:41 12/16/17 12:07 12/16/17 12:07
--- NOTE | 2017-12-16 13:32 | ER Document Report ---
HPI - HPI Patient complains to provider of: Vaginal bleeding Onset: Other - 2 days Onset/Duration: Persistent Quality of pain: Cramping Pain Level: 2 Context: Patient states her last menstrual period was November 29- of this year. Patient states that for the past 2 days she has had vaginal bleeding and concerned that she may be . Patient is requesting a serum test. Patient states she did recently stop her oral contraceptive pill in October and has had an episode of unprotected intercourse. Associated Symptoms: Other. denies: Headache Exacerbated by: Denies Relieved by: Denies Similar symptoms previously: No Recently seen / treated by doctor: No - ROS ROS below otherwise negative: Yes Systems Reviewed and Negative: Yes All other systems reviewed and negative - EENT EENT: DENIES: Sore Throat - GASTROINTESTINAL Gastrointestinal: DENIES: Abdominal Pain, Nausea - REPRODUCTIVE Reproductive: REPORTS: Abnormal bleeding / discharge. DENIES: : - DERM Skin Color: Flushed Skin Problems: None Past Medical History - General Information source: Patient Last Menstrual Period: 11/29-12/04 - Social History Smoking Status: Current Every Day Smoker Chew tobacco use (# tins/day): No Smoking Education Provided: Yes Frequency of alcohol use: Occasional Drug Abuse: None Occupation: [employer] Family History: Reviewed & Not Pertinent Patient has suicidal ideation: No Patient has homicidal ideation: No - Past Medical History Cardiac Medical History: Reports: Hx Hypertension Endocrine Medical History: Reports: Hx Diabetes Mellitus Type 2 Renal/ Medical History: Denies: Hx Peritoneal Dialysis GI Medical History: Reports: Hx Gastroesophageal Reflux Disease Psychiatric Medical History: Reports: Hx Bipolar Disorder, Hx Depression Past Surgical History: Reports: Hx Cholecystectomy, Hx Tonsillectomy - Immunizations Hx Diphtheria, Pertussis, Tetanus Vaccination: No Vertical Provider Document - CONSTITUTIONAL Agree With Documented VS: Yes Exam Limitations: No Limitations General Appearance: WD/WN, No Apparent Distress, Obese - morbidly - INFECTION CONTROL TRAVEL OUTSIDE OF THE [place] IN LAST 30 DAYS: No - HEENT HEENT: Atraumatic, Normocephalic - NECK Neck: Normal Inspection - RESPIRATORY Respiratory: Breath Sounds Normal, No Respiratory Distress - CARDIOVASCULAR Cardiovascular: Regular Rate, Regular Rhythm - BACK Back: negative: CVA Tenderness-Right, CVA Tenderness-Left - MUSCULOSKELETAL/EXTREMETIES Musculoskeletal/Extremeties: CRAIG TATUM - NEURO Level of Consciousness: Awake, Alert, Appropriate Motor/Sensory: No Motor Deficit - DERM Integumentary: Warm, Dry, No Rash Course - Vital Signs Vital signs: Temp Pulse Resp BP Pulse Ox 97.9 F 108 H 14 153/93 H 98 12/16/17 12:07 12/16/17 12:07 12/16/17 12:41 12/16/17 12:07 12/16/17 12:07 - Laboratory Result Diagrams: 12/16/17 13:22 12/16/17 13:22 Laboratory results interpreted by me: 12/16/17 14:49 Labs- Entire Visit 12/16/17 12/16/17 12/16/17 13:00 13:22 13:22 WBC 10.2 RBC 4.57 Hgb 12.7 Hct 38.5 MCV 84 MCH 27.8 MCHC 33.1 RDW 16.1 H Plt Count 372 Seg Neutrophils % 57.3 Lymphocytes % 32.3 Monocytes % 6.6 Eosinophils % 3.0 Basophils % 0.8 Absolute Neutrophils 5.8 Absolute Lymphocytes 3.3 Absolute Monocytes 0.7 Absolute Eosinophils 0.3 Absolute Basophils 0.1 Sodium 142.7 Potassium 4.4 Chloride 108 H Carbon Dioxide 21 L Anion Gap 14 BUN 10 Creatinine 0.70 Est GFR ( Amer) > 60 Est GFR (Non-Af Amer) > 60 Glucose 123 H Calcium 9.8 Total Bilirubin 0.3 Direct Bilirubin 0.3 Neonat Total Bilirubin Not Reportable Neonat Direct Bilirubin Not Reportable Neonat Indirect Bili Not Reportable AST 76 H ALT 79 H Alkaline Phosphatase 84 Total Protein 6.9 Albumin 4.1 Beta HCG, Quant < 2.39 Total Beta HCG NEGATIVE Urine Color YELLOW Urine Appearance SLIGHTLY-CLOUDY Urine pH 5.0 Ur Specific [place] 1.026 Urine Protein NEGATIVE Urine Glucose (UA) NEGATIVE Urine Ketones NEGATIVE Urine Blood MODERATE H Urine Nitrite NEGATIVE Urine Bilirubin NEGATIVE Urine Urobilinogen 4.0 H Ur Leukocyte Esterase NEGATIVE Urine WBC (Auto) 1 Urine RBC (Auto) 1 Squamous Epi Cells Auto 2 Urine Mucus (Auto) MOD Urine Ascorbic Acid NEGATIVE Epi Cells (Wet Prep) Trichomonas (Wet Prep) Vaginal WBC Vaginal RBC Vaginal Yeast 12/16/17 13:58 WBC RBC Hgb Hct MCV MCH MCHC RDW Plt Count Seg Neutrophils % Lymphocytes % Monocytes % Eosinophils % Basophils % Absolute Neutrophils Absolute Lymphocytes Absolute Monocytes Absolute Eosinophils Absolute Basophils Sodium Potassium Chloride Carbon Dioxide Anion Gap BUN Creatinine Est GFR ( Amer) Est GFR (Non-Af Amer) Glucose Calcium Total Bilirubin Direct Bilirubin Neonat Total Bilirubin Neonat Direct Bilirubin Neonat Indirect Bili AST ALT Alkaline Phosphatase Total Protein Albumin Beta HCG, Quant Total Beta HCG Urine Color Urine Appearance Urine pH Ur Specific [place] Urine Protein Urine Glucose (UA) Urine Ketones Urine Blood Urine Nitrite Urine Bilirubin Urine Urobilinogen Ur Leukocyte Esterase Urine WBC (Auto) Urine RBC (Auto) Squamous Epi Cells Auto Urine Mucus (Auto) Urine Ascorbic Acid Epi Cells (Wet Prep) 3+ EPITHELIALS SEEN Trichomonas (Wet Prep) NO TRICHOMONAS SEEN Vaginal WBC RARE WBCS SEEN Vaginal RBC 3+ RBCS SEEN Vaginal Yeast NO YEAST SEEN Discharge - Discharge Clinical Impression: LFT elevation, Vagina bleeding Condition: Stable Disposition: HOME, SELF-CARE Instructions: Liver Function Abnormality ([facility]), Vaginal Bleeding ([facility]) Additional Instructions: Return immediately for any new or worsening symptoms Followup with your primary care provider, call tomorrow to make a followup appointment Follow-up with a injection molding machine offbearer for further evaluation of vaginal bleeding Follow-up with your mental health provider to follow-up on management of your bipolar disease as well as discussing restarting your medications. Forms: Smoking Cessation Education Referrals: EMA RIZVI MD [Primary Care Provider] - Follow up tomorrow [facility] [Provider Group] - Follow up as needed
[2017-12-16 13:34] LABS: APPEARANCE,URINE SLIGHTLY-CLOUDY; BILIRUBIN,URINE NEGATIVE (NEGATIVE); COLOR,URINE YELLOW; GLUCOSE, URINE NEGATIVE (NEGATIVE); KETONES,URINE NEGATIVE (NEGATIVE); LEUKOCYTE ESTERASE,URINE NEGATIVE (NEGATIVE); NITRITE,URINE NEGATIVE (NEGATIVE); PROTEIN,URINE NEGATIVE (NEGATIVE); URINE SPECIFIC GRAVITY 1.026
[2017-12-16 13:42] LABS: ABSOLUTE BASOPHILS # (AUTO) 0.1 10^3/uL (0.0-0.2); ABSOLUTE EOSINOPHILS # (AUTO) 0.3 10^3/uL (0.0-0.6); ABSOLUTE LYMPHOCYTES (AUTO) 3.3 10^3/uL (0.5-4.7); ABSOLUTE MONOCYTES (AUTO) 0.7 10^3/uL (0.1-1.4); ABSOLUTE NEUT (AUTO) 5.8 10^3/uL (1.7-8.2); BASOPHILS % (AUTO) 0.8 % (0-2); HEMATOCRIT 38.5 % (36.0-47.0); HEMOGLOBIN 12.7 g/dL (12.0-15.5); LYMPHOCYTES % (AUTO) 32.3 % (13-45); MEAN CORPUSCULAR HEMOGLOBIN 27.8 pg (27.0-33.4); MEAN CORPUSCULAR HGB CONC 33.1 g/dL (32.0-36.0); MEAN CORPUSCULAR VOLUME 84 fl (80-97); MONOCYTES % (AUTO) 6.6 % (3-13); PLATELET COUNT 372 10^3/uL (150-450); RED BLOOD COUNT 4.57 10^6/uL (3.72-5.28); RED CELL DISTRIBUTION WIDTH 16.1 % (11.5-14.0); SEGMENTED NEUTROPHILS % (AUTO) 57.3 % (42-78); TOTAL CELLS COUNTED % (AUTO) 100 %; WHITE BLOOD COUNT 10.2 10^3/uL (4.0-10.5)
[2017-12-16 14:09] LABS: ALANINE AMINOTRANSFERASE 79 U/L (9-52); ALBUMIN 4.1 g/dL (3.5-5.0); ALKALINE PHOSPHATASE 84 U/L (38-126); ANION GAP 14 (5-19); ASPARTATE AMINO TRANSFERASE 76 U/L (14-36); BILIRUBIN,DIRECT 0.3 mg/dL (0.0-0.4); BILIRUBIN,TOTAL 0.3 mg/dL (0.2-1.3); BLOOD UREA NITROGEN 10 mg/dL (7-20); CALCIUM 9.8 mg/dL (8.4-10.2); CARBON DIOXIDE 21 mmol/L (22-30); CHLORIDE 108 mmol/L (98-107); GLUCOSE 123 mg/dL (75-110); POTASSIUM 4.4 mmol/L (3.6-5.0); SODIUM 142.7 mmol/L (137-145); TOTAL PROTEIN 6.9 g/dL (6.3-8.2)
[2017-12-16 14:10] LABS: RBCS (WET MOUNT) 3+ RBCS SEEN; T.VAGINALIS (WET MOUNT) NO TRICHOMONAS SEEN; WBCS (WET MOUNT) RARE WBCS SEEN; YEAST (WET MOUNT) NO YEAST SEEN
[2017-12-16 14:11] LABS: EPITHELIALS (WET MOUNT) 3+ EPITHELIALS SEEN
[2017-12-16 15:23] VITALS: BP 132/84
[2017-12-16 15:35] LABS: CHLAM PCR NOT DETECTED (NOT DETECT); GON PCR NOT DETECTED (NOT DETECT)
== END 2017-12-16 15:24 | disposition home or self-care (01) ==
LOC: ER 12:04
DX: N93.9 Abnormal uterine and vaginal bleeding, unspecified (principal); R23.2 Flushing; R79.89 Other specified abnormal findings of blood chemistry; F17.200 Nicotine dependence, unspecified, uncomplicated; I10 Essential (primary) hypertension; E11.9 Type 2 diabetes mellitus without complications; Z32.00 Encounter for pregnancy test, result unknown
CPT/HCPCS: 36415; 80053; 81001; 84702; 85025; 86900; 86901; 87210; 87491; 87591; 99284

== ENCOUNTER 2018-02-03 18:33 | Emergency (ER) | payer OTHER ==
[2018-02-03] MEDS ORDERED: ACTIVATED CHARCOAL 25 GM BOTTLE PO ONE (18:55)
--- NOTE | 2018-02-03 19:02 | ER Document Report ---
ED Medical Screen (RME) - General Chief Complaint: Accidental Overdose Stated Complaint: ACCIDENTAL OVERDOSE Time Seen by Provider: 02/03/18 18:44 Mode of Arrival: Ambulatory Information source: Patient Notes: This is a 27-year-old female with a history of hypertension, reflux who presents to the emergency room after an accidental ingestion of 4 of her blood pressure medicines. The patient grabbed the medicines out of the cabinet and thought she was taking ibuprofen. The medicine was actually her blood pressure medicine which is losartin-HCTZ (100 mg-25 mg). The patient took this medicine within the past hour. At this time, she has no complaints of near syncope, fainting, chest pain or shortness of breath. The patient does appear anxious. I have discussed the case with poison control [phone] and they have recommended 4 hours of observation and 25 g of charcoal 1. TRAVEL OUTSIDE OF THE [place] IN LAST 30 DAYS: No - Related Data Allergies/Adverse Reactions: No Known Allergies Allergy (Verified 12/16/17 12:04) Past Medical History - Social History Chew tobacco use (# tins/day): No Frequency of alcohol use: Occasional Drug Abuse: Marijuana - Past Medical History Cardiac Medical History: Reports: Hx Hypertension Pulmonary Medical History: Reports: Hx Asthma Endocrine Medical History: Reports: Hx Diabetes Mellitus Type 2 Renal/ Medical History: Denies: Hx Peritoneal Dialysis GI Medical History: Reports: Hx Gastroesophageal Reflux Disease Psychiatric Medical History: Reports: Hx Bipolar Disorder, Hx Depression Past Surgical History: Reports: Hx Cholecystectomy, Hx Tonsillectomy - Immunizations Hx Diphtheria, Pertussis, Tetanus Vaccination: No Physical Exam - Vital signs Vitals: Temp Pulse Resp BP Pulse Ox 99.1 F 95 16 141/76 H 97 02/03/18 18:43 02/03/18 18:43 02/03/18 18:43 02/03/18 18:43 02/03/18 18:43 Course - Vital Signs Vital signs: Temp Pulse Resp BP Pulse Ox 99.1 F 95 20 141/76 H 97 02/03/18 18:43 02/03/18 18:43 02/03/18 18:46 02/03/18 18:43 02/03/18 18:43 Doctor's Discharge - Discharge Referrals: EMA RIZVI MD [Primary Care Provider] - Follow up as needed
[2018-02-03 19:24] LABS: ABSOLUTE BASOPHILS # (AUTO) 0.1 10^3/uL (0.0-0.2); ABSOLUTE EOSINOPHILS # (AUTO) 0.4 10^3/uL (0.0-0.6); ABSOLUTE LYMPHOCYTES (AUTO) 4.3 10^3/uL (0.5-4.7); ABSOLUTE MONOCYTES (AUTO) 0.7 10^3/uL (0.1-1.4); ABSOLUTE NEUT (AUTO) 6.2 10^3/uL (1.7-8.2); EOSINOPHILS % (AUTO) 3.5 % (0-6); HEMATOCRIT 36.7 % (36.0-47.0); HEMOGLOBIN 12.2 g/dL (12.0-15.5); LYMPHOCYTES % (AUTO) 36.7 % (13-45); MEAN CORPUSCULAR HGB CONC 33.2 g/dL (32.0-36.0); MEAN CORPUSCULAR VOLUME 81 fl (80-97); MONOCYTES % (AUTO) 5.8 % (3-13); PLATELET COUNT 417 10^3/uL (150-450); RED BLOOD COUNT 4.51 10^6/uL (3.72-5.28); RED CELL DISTRIBUTION WIDTH 17.2 % (11.5-14.0); TOTAL CELLS COUNTED % (AUTO) 100 %; WHITE BLOOD COUNT 11.8 10^3/uL (4.0-10.5)
--- NOTE | 2018-02-03 19:41 | ER Document Report ---
ED General - General Chief Complaint: Accidental Overdose Stated Complaint: ACCIDENTAL OVERDOSE Time Seen by Provider: 02/03/18 18:44 Mode of Arrival: Ambulatory Information source: Patient, [facility] Records Notes: 27-year-old female with hypertension, bipolar disorder, type 2 diabetes, PCO S presents via private vehicle from home after she realized that she took for of her blood pressure medications accidentally. Patient states that she believes she was taking ibuprofen. She took 4 tabs of losartan/hydrochlorothiazide, 100 mg/25 mg. Patient currently states that she "feels mellow". She denies suicidal, homicidal ideation. Denies chest pain, shortness of breath. TRAVEL OUTSIDE OF THE [place] IN LAST 30 DAYS: No - HPI Onset: Just prior to arrival Quality of pain: No pain Associated symptoms: None Exacerbated by: Denies Relieved by: Denies Similar symptoms previously: No Recently seen / treated by doctor: No - Related Data Allergies/Adverse Reactions: No Known Allergies Allergy (Verified 12/16/17 12:04) Past Medical History - General Information source: Patient - Social History Smoking Status: Current Every Day Smoker Chew tobacco use (# tins/day): No Smoking Education Provided: Yes - Patient counselled regarding cessation for 4 minutes Frequency of alcohol use: Occasional Drug Abuse: Marijuana Lives with: Friend Family History: Reviewed & Not Pertinent Patient has suicidal ideation: No Patient has homicidal ideation: No - Past Medical History Cardiac Medical History: Reports: Hx Hypertension Pulmonary Medical History: Reports: Hx Asthma Endocrine Medical History: Reports: Hx Diabetes Mellitus Type 2 Renal/ Medical History: Denies: Hx Peritoneal Dialysis GI Medical History: Reports: Hx Gastroesophageal Reflux Disease Psychiatric Medical History: Reports: Hx Bipolar Disorder, Hx Depression Past Surgical History: Reports: Hx Cholecystectomy, Hx Tonsillectomy - Immunizations Hx Diphtheria, Pertussis, Tetanus Vaccination: No Review of Systems - Review of Systems Notes: REVIEW OF SYSTEMS: CONSTITUTIONAL : Denies fever, chills, or sweats. Denies recent illness. Denies weight loss, recent hospitalizations. EENT: Denies visula changes, eye pain. Denies nasal or sinus congestion or discharge. Denies sore throat, oral lesions, difficulty swallowing. CARDIOVASCULAR: Denies chest pain. Denies palpitations or racing or irregular heart beat. Denies lower extremity edema. RESPIRATORY: Denies cough, cold, or chest congestion. Denies shortness of breath, difficulty breathing, or wheezing. GASTROINTESTINAL: Denies abdominal pain or distention. Denies nausea, vomiting , or diarrhea. Denies blood in vomitus, stools, or per rectum. Denies black, tarry stools. Denies constipation. GENITOURINARY: Denies difficulty urinating, painful urination, burning, frequency, blood in urine, or vaginal discharge. MUSCULOSKELETAL: Denies back or neck pain or stiffness. Denies joint pain or swelling. SKIN: Denies rash, lesions or sores. HEMATOLOGIC : Denies easy bruising or bleeding. LYMPHATIC: Denies swollen, enlarged glands. NEUROLOGICAL: Denies confusion or altered mental status. Denies passing out or loss of consciousness. Denies dizziness or lightheadedness. Denies headache. Denies weakness or paralysis or loss of use of either side. Denies problems with gait or speech. Denies sensory loss, numbness, or tingling. Denies seizures. PSYCHIATRIC: Denies anxiety or stress. Denies depression, suicidal ideation, or homicidal ideation. Physical Exam - Vital signs Vitals: Temp Pulse Resp BP Pulse Ox 99.1 F 95 16 141/76 H 97 02/03/18 18:43 02/03/18 18:43 02/03/18 18:43 02/03/18 18:43 02/03/18 18:43 - Notes Notes: PHYSICAL EXAMINATION: GENERAL: Well-appearing, well-nourished and in no acute distress. HEAD: Atraumatic, normocephalic. EYES: Pupils equal round and reactive to light, extraocular movements intact, conjunctiva are normal. ENT: Nares patent, oropharynx clear without exudates. Moist mucous membranes. NECK: Normal range of motion, supple without lymphadenopathy LUNGS: Breath sounds clear to auscultation bilaterally and equal. No wheezes rales or rhonchi. HEART: Regular rate and rhythm without murmurs ABDOMEN: Soft, nontender, nondistended abdomen. No guarding, no rebound. No masses appreciated. Female : deferred Musculoskeletal: Normal range of motion, no pitting or edema. No cyanosis. NEUROLOGICAL: Cranial nerves grossly intact. Normal speech, normal gait. Normal sensory, motor exams PSYCH: Normal mood, normal affect. SKIN: Warm, Dry, normal turgor, no rashes or lesions noted. Course - Re-evaluation Re-evalutation: 27-year-old female with hypertension, bipolar disorder, type 2 diabetes, PCO S presents via private vehicle from home after she realized that she took for of her blood pressure medications accidentally. Patient states that she believes she was taking ibuprofen. She took 4 tabs of losartan/hydrochlorothiazide, 100 mg/25 mg. Patient currently states that she "feels mellow". She denies suicidal, homicidal ideation. Denies chest pain, shortness of breath. Patient was seen by myself upon arrival. Vital signs were reviewed. Patient is afebrile , normotensive and not hypoxic. Patient does not appear toxic or dehydrated. They are in no acute distress. Previous medical records and nursing notes reviewed. Patient has a normal physical exam. EKG showed her to be in normal sinus rhythm. Patient was evaluated for greater than 5 hours per poison control recommendation. She had no episodes of hypotension, bradycardia. She did receive activated charcoal. On reevaluation patient is requesting discharge home. Patient provided the opportunity to ask questions, and express concerns. Discharge instructions discussed. Patient is agreeable with discharge home. Return indications explained and discussed with the patient who displays understanding. Patient encouraged to return to the emergency department immediately with any concerns. 02/03/18 21:01 I spoke to poison control who was contacted earlier to reiterate their recommendations which are 4 hours of observation from time of ingestion, activated charcoal. They state that most BETTY inhibitors will have an effect within the first hour of ingestion. At this time patient remains stable. Heart rate 82, blood pressure 124/60 satting 98% on room air. 02/03/18 23:48 - Vital Signs Vital signs: Temp Pulse Resp BP Pulse Ox 99.1 F 95 19 130/65 H 97 02/03/18 18:43 02/03/18 18:43 02/03/18 22:30 02/03/18 22:30 02/03/18 22:30 - Laboratory Result Diagrams: 02/03/18 19:13 02/03/18 19:13 Laboratory results interpreted by me: 02/03/18 02/03/18 19:13 19:13 WBC 11.8 H RDW 17.2 H Chloride 108 H AST 45 H - EKG Interpretation by Me EKG shows normal: Sinus rhythm Rate: Normal Rhythm: NSR Discharge - Discharge Clinical Impression: Accidental overdose Qualifiers: Encounter type: initial encounter Qualified Code(s): T50.901A - Poisoning by unspecified drugs, medicaments and biological substances, accidental ( unintentional), initial encounter Condition: Good Disposition: HOME, SELF-CARE Instructions: Overdose / Ingestion ([facility]) Forms: Smoking Cessation Education Referrals: EMA RIZVI MD [Primary Care Provider] - Follow up in 3-5 days
[2018-02-03 19:42] LABS: ALANINE AMINOTRANSFERASE 37 U/L (9-52); ALBUMIN 4.3 g/dL (3.5-5.0); ALKALINE PHOSPHATASE 84 U/L (38-126); ANION GAP 9 (5-19); ASPARTATE AMINO TRANSFERASE 45 U/L (14-36); BILIRUBIN,DIRECT 0.4 mg/dL (0.0-0.4); BILIRUBIN,TOTAL 0.4 mg/dL (0.2-1.3); BLOOD UREA NITROGEN 12 mg/dL (7-20); CALCIUM 9.4 mg/dL (8.4-10.2); CARBON DIOXIDE 25 mmol/L (22-30); CHLORIDE 108 mmol/L (98-107); GLUCOSE 107 mg/dL (75-110); SODIUM 142.4 mmol/L (137-145); TOTAL PROTEIN 8.1 g/dL (6.3-8.2)
--- NOTE | 2018-02-03 22:31 | EKG REPORT ---
SEVERITY:- NORMAL ECG - SINUS RHYTHM : Confirmed by: Taty Ibarra MD 03-Feb-2018 22:30:18
[2018-02-03 22:42] VITALS: BP 130/65
== END 2018-02-03 22:55 | disposition home or self-care (01) ==
LOC: ER 18:33
DX: T46.5X1A Poisoning by other antihypertensive drugs, accidental (unintentional), initial encounter (principal); Y92.009 Unspecified place in unspecified non-institutional (private) residence as the place of occurrence of the external cause; F17.200 Nicotine dependence, unspecified, uncomplicated; I10 Essential (primary) hypertension; E11.9 Type 2 diabetes mellitus without complications; Z90.49 Acquired absence of other specified parts of digestive tract
CPT/HCPCS: 93005; 99406; 99284; 36415; 85025; 80053; 93010; J3490